=== PATIENT | male | born 1925 | race Caucasian/White ===

== ENCOUNTER 2016-10-16 15:05 | Emergency (ER) | payer MEDICARE, OTHER ==
[2016-10-16 16:19] LABS: ABSOLUTE NEUTROPHIL COUNT 6.6 K/mm3 (1.8-7.7); BASO % 0.3 % (0.2-1.0); EOS # 0.5 (0.0-0.5); EOS % 5.6 % (0.9-2.9); HEMATOCRIT 34.5 % (32.0-52.0); IMM NEUT # 0.1 K/mm3 (0-0.2); IMM NEUT% 1.4 % (0-1); LYMPH # 1.4 (1.0-4.8); LYMPH % 14.8 % (15-45); MEAN CORPUSCULAR HEMOGLOBIN 29.6 pg (27.0-31.0); MEAN CORPUSCULAR HGB CONC 31.9 g/dl (33.0-37.0); MEAN PLATELET VOLUME 10.5 fl (7.4-10.4); MONO # 0.9 (0.0-0.8); MONO % 9.5 % (4-12); NEUT % 68.4 % (43-75); PLATELET COUNT 382 K/mm3 (130-400); RED CELL DISTRIBUTION WIDTH 14.6 % (11.5-14.5)
[2016-10-16 16:29] LABS: ALB/GLOB RATIO 0.6 (>1.0); ALBUMIN 3.1 gm/dL (3.5-5.7); CALCIUM 9.2 mg/dL (8.6-10.3)
--- NOTE | 2016-10-16 16:39 | CT ---
Exam Type: CHEST W/O CON Date and Time: 10/16/2016 3:34 PM History: Pleural effusion, cough. Comparison: Chest x-ray 08/31/[address] chest without contrast 04/09/2016 Technique: Contiguous axial 3 mm images of the chest were obtained without IV contrast. Sagittal and coronal reformations with high resolution lung algorithm images were also obtained at this time. CT DI: 4.1 DLP: 155.2 FINDINGS: LUNG AND LARGE AIRWAYS: Dependent and atelectatic changes are noted at the lung bases. Small left-sided effusion is present with associated compressive atelectasis. Underlying pneumonia cannot be excluded. Calcified granuloma is noted at the left base on image 81 medially. Mild motion artifact is present limiting assessment for other areas of nodular density. Moderate emphysematous changes are present, with an upper lobe predominance likely relating to history of tobacco use. The patient's right-sided effusion has had interval resolution. PLEURA: As above. VESSELS: Mild aspect disease and coronary artery calcifications. HEART: normal size. No pericardial effusion. MEDIASTINUM AND MAGGIE: Mediastinal adenopathy is present. Left paratracheal node on image 35 measures 1.2 x 1 cm. Left paratracheal node on image 37 measures 1.7 x 1.2 cm. Subcarinal node on image 47 measures 2.4 x 0.8 cm. Left hilar node on image 46 measures 1.3 x 1.1 cm. Nodes are enlarged without respect histology. CHEST WALL AND LOWER NECK: within normal limits. UPPER ABDOMEN: Gallstones are present in the dependent portion of the gallbladder. Loculated air is identified within the left collecting system of unknown clinical significance. Differential considerations would include instrumentation or gas-forming organisms and correlation is recommended. No air is present on the right. BONES: Diffuse osteopenia and mild degenerative changes of the spine are present. Spine maintains anatomic alignment. IMPRESSION: Resolution of the patient's previously seen and described right-sided effusion. Dependent and atelectatic changes are noted with a tiny left effusion. It would be difficult to exclude areas of pneumonia, given mild motion artifact. Adenopathy is noted within the mediastinum and left hilum, without respect histology. Correlation to patient's clinical status would be recommended. Gas is noted within the left collecting system of unknown clinical significance. Lines could relate to recent instrumentation though gas-forming organisms could have a similar sequela and correlation is recommended. Findings were called to Dr. Turner at approximately 1634 hours on 10/15/2016.
[2016-10-16] MEDS ORDERED: SODIUM CHLORIDE 0.9% 1,000 ML ONE (16:41)
[2016-10-16 19:02] LABS: URINE BILIRUBIN NEGATIVE (NEGATIVE); URINE BLOOD 3+ (NEGATIVE); URINE GLUCOSE (UA) NEGATIVE (NEGATIVE); URINE LEUKOCYTE ESTERASE 2+ (NEGATIVE); URINE NITRITE NEGATIVE (NEGATIVE); URINE PROTEIN 2+ (NEGATIVE); URINE UROBILINOGEN NORMAL (0-1 mg/dl)
[2016-10-16 19:06] LABS: URINE APPEARANCE CLOUDY; URINE COLOR YELLOW
[2016-10-16] MEDS ORDERED: CEFTRIAXONE 1 GRAM DUPLEX 50 ML IV ONE (19:14)
[2016-10-16 19:15] LABS: URINE BACTERIA 4+; URINE EPITHELIAL CELLS 0-1 /hpf; URINE WBC >100 /hpf
== END 2016-10-16 20:54 | disposition home or self-care (01) ==
LOC: ED 15:05
DX: N30.91 Cystitis, unspecified with hematuria (principal); N18.9 Chronic kidney disease, unspecified; E86.0 Dehydration; R53.1 Weakness; R05 Cough; F79 Unspecified intellectual disabilities
CPT/HCPCS: 83605; 83880; 85025; 87040; 87086; 80053; 87186 ×2; 84484; 81001; 87077; 71250; 99284 ×2; 96374; 96361 ×2; 51798; J7030; J0696